=== PATIENT | female | born 1950 | race Caucasian/White ===

== ENCOUNTER 2021-08-25 10:19 | Emergency (ER) | payer OTHER ==
[~2021-08-25] VITALS: Ht 170.2 cm; Wt 86.2 kg
[2021-08-25] MEDS ORDERED: FAMOTIDINE40 MG (10:29)
== END 2021-08-25 12:26 | disposition home or self-care (01) ==
LOC: ER 10:19
DX: N39.0 Urinary tract infection, site not specified (principal); Z88.0 Allergy status to penicillin

== ENCOUNTER 2022-03-29 16:14 | Emergency (ER) | payer OTHER ==
[~2022-03-29] VITALS: Ht 157.5 cm; Wt 86.2 kg
[~2022-03-29 16:14] MED LIST: FAMOTIDINE40 MG
== END 2022-03-29 20:36 | disposition home or self-care (01) ==
LOC: ER 16:14
DX: B34.8 Other viral infections of unspecified site (principal); Z88.0 Allergy status to penicillin; Z20.822 Contact with and (suspected) exposure to COVID-19